=== PATIENT | female | born 1935 | race Caucasian/White ===

== ENCOUNTER 2023-05-25 06:04 | Outpatient (CLI) | payer MEDICARE, OTHER | END 2023-05-25 23:59 | disposition critical access hospital (66) | LOC: EMS 06:04 | DX: R04.0 Epistaxis (principal); I10 Essential (primary) hypertension; Z91.81 History of falling | CPT/HCPCS: A0425; A0429 ==

== ENCOUNTER 2023-05-25 06:30 | Emergency (ER) | payer MEDICARE, OTHER ==
--- NOTE | 2023-05-25 07:18 | ED Physician Documentation ---
PD HPI HEENT - Stated complaint Stated Complaint: NOSE BLEED - Chief complaint Chief Complaint: Heent - History obtained from History obtained from: Patient - History of Present Illness Timing - onset: How many hours ago (10/29), Today Timing - details: Abrupt onset (she awoke with nosebleeding. Unalbe to tell which side started first. Seemed both sides when got up. Tried pinching without cessation. Here to ER with some bleeding still on arrival. Nose clamp by triage nurse.) Location: Nose Associated symptoms: Facial swelling (she had fallen and struck nose/face 3 days ago. Seen in other ER with CT head/face/neck per patient and daughter. No fractures according to patient. Had some epistaxis at time of injury. Was stopp ed until this morning.). No: Fever, Congestion Recently seen: Emergency Dept Review of Systems Eyes: denies: Loss of vision, Decreased vision Neurologic: reports: Generalized weakness. denies: Focal weakness, Numbness PD PAST MEDICAL HISTORY - Past Medical History Past Medical History: Yes Cardiovascular: Hypertension, High cholesterol HEENT: Glaucoma - Past Surgical History Past Surgical History: Yes Ortho: Carpal Tunnel surgery /GLOVE FORMER: Hysterectomy - Present Medications Home Medications: Ambulatory Orders Medication Instructions Recorded Confirmed Alendronate [Fosamax] 70 mg PO 05/25/23 Aspirin [Anvik Aspirin] 81 mg PO DAILY 05/25/23 05/25/23 Metoprolol Succinate [Toprol Xl] 50 mg PO QPM 05/25/23 05/25/23 Rosuvastatin Calcium [Crestor] 5 mg PO QPM 05/25/23 05/25/23 Timolol 0.5% Ophth Drops [Timoptic 1 drops EACHEYE QPM 05/25/23 05/25/23 0.5% Ophth Drops] trandolapriL [Trandolapril] 4 mg PO DAILY 05/25/23 05/25/23 - Allergies Allergies/Adverse Reactions: Allergies Allergy/AdvReac Type Severity Reaction Status Date / Time nizatidine [From Axid] Allergy Hives Verified 05/25/23 06:40 Sulfa (Sulfonamide AdvReac Emesis Verified 05/25/23 06:40 Antibiotics) - Social History Does the pt smoke?: No Smoking Status: Never smoker Does the pt drink ETOH?: No Does the pt have substance abuse?: No - Immunizations Immunizations are current?: Yes - POLST Patient has POLST: No PD ED PE NORMAL - Vitals Vital signs reviewed: Yes - General General: Alert and oriented X 3, No acute distress, Well developed/nourished - HEENT HEENT: Other (purple bruising on forehead and bilateral periorbital areas. Tender at nose without obvious deformity. Nares with general irritation medial pearl, but focal bleeding not identified. No bleeding currently. ) - Neck Neck: Supple, no meningeal sign, No adenopathy - Derm Derm: Normal color, Warm and dry - Neuro Neuro: Alert and oriented X 3, No motor deficit, No sensory deficit, Normal speech Results - Vitals Vitals: Oxygen O2 Source Room air PD Medical Decision Making - ED course Complexity details: considered differential (post traumatic nosebleed. I did not see focal area of bleeding on nasal exam. No bleeding currently. There is wall irritation both sides. I placed foam packing with TXA/lido/epi to expand it. Suggested to leave in until later today.), d/w patient Departure - Departure Disposition: 01 Home, Self Care Clinical Impression: Nosebleed Condition: Stable Record reviewed to determine appropriate education?: Yes Instructions: ED Nasal Packing Anterior Removable Comments: Keep the packing inthe nostrils until later today. This acts as a slight pressure in the nasal passage to keep bleeding from starting again. Gently pull it out later this afternoon. If bleeding starts again, then use the clamp to pinch pressure for 10-15 minutes. Return if needed. It would not be unusual for recurring bleeding to some degree for a few days after the injury. Forms: PCP List Discharge Date/Time: 05/25/23 08:03
[2023-05-25 08:08] VITALS: BP 159/67
== END 2023-05-25 08:03 | disposition home or self-care (01) ==
LOC: EDBD → EDUNIT# → ED 06:30
DX: R04.0 Epistaxis (principal); I10 Essential (primary) hypertension
CPT/HCPCS: 99283